=== PATIENT | female | born 2000 | race Caucasian/White ===

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

== ENCOUNTER 2019-03-20 14:21 | Emergency (ER) | payer MEDICAID ==
[~2019-03-20] VITALS: Ht 157.5 cm; Wt 74.8 kg
[2019-03-20 14:31] VITALS: BP_SYST 111
--- NOTE | 2019-03-20 14:35 | NUR ---
Patient triaged and placed in waiting room. VSS and patient appears in no acute distress at this time. Accompanied by mother, awaiting available bed, and MD notified of need for MSE.
--- NOTE | 2019-03-20 14:37 | NUR ---
Patient arrived in the ED accompanied by mom c/o tailbone pain for a week now. Denied any recent trauma or falls. Denied any chest pain, SOB or dizziness. Patient is alert and oriented x4, respirations even and unlabored, speaking in full sentences, and ambulating with a steady gait. VSS, pain level 10/10 - Not taking any pain medications. Mother at bedside. Informed of the wait time. Instructed to notify ED staff for any changes in condition or worsening of symptoms. Patient verbalized understanding.
--- NOTE | 2019-03-20 14:44 | NUR ---
Patient ambulated to the bathroom with a steady gait. Urine specimen collected. Addendum: 03/20/19 at 1454 by [email or web address] Patient ambulated to the bathroom with a steady gait. Unable to collect urine specimen at this time.
--- NOTE | 2019-03-20 15:05 | NUR ---
Urine specimen collected. Urine dip and preg done.
[2019-03-20] MEDS ORDERED: KETOROLAC TROMETHAMINE 60 MG/2 ML VIAL IM ONE (15:15)
--- NOTE | 2019-03-20 15:16 | NUR ---
ER Dr. Michael at bedside examining patient.
--- NOTE | 2019-03-20 15:24 | NUR ---
Administered Toradol 60mg IM as ordered by Dr. Michael. Patient tolerated the medication well.
--- NOTE | 2019-03-20 15:27 | NUR ---
Patient is taken to Radiology in stable condition.
--- NOTE | 2019-03-20 16:08 | NUR ---
Patient given written and verbal discharge instructions and verbalizes understanding. ER MD discussed with patient the results and treatment provided. Patient in stable condition. ID arm band removed. Rx of Naproxen and Tramadol given. Patient educated on pain management and to follow up with PMD. Pain Scale 0/10. Opportunity for questions provided and answered. Medication side effect fact sheet provided.
[2019-03-20 16:14] VITALS: BP_SYST 111
== END 2019-03-20 16:08 | disposition home or self-care (01) ==
LOC: SED 14:21
DX: M53.3 Sacrococcygeal disorders, not elsewhere classified (principal); R42 Dizziness and giddiness
CPT/HCPCS: 72220; 81002; 81025; 96372; 99283; J1885

== ENCOUNTER 2019-03-22 20:12 | Emergency (ER) | payer MEDICAID ==
[~2019-03-22] VITALS: Ht 157.5 cm; Wt 74.8 kg
[2019-03-22 20:20] VITALS: BP_SYST 120
--- NOTE | 2019-03-22 20:20 | NUR ---
Pt to bed 3, side rails up. Report given to Micky PORTILLO.
--- NOTE | 2019-03-22 20:26 | NUR ---
Pt [id number] came in with a complaint of tailbone pain. Pt unable to sit down because of pain. Was in ER last week regarding same complaint. No other complaint noted. Safety precaution observed. Will continue to monitor Pt.
--- NOTE | 2019-03-22 20:29 | NUR ---
ER MD Acuña at bedside for medical evaluation.
[2019-03-22] MEDS ORDERED: LIDOCAINE 1% 10 MG/ML, 20 ML MDV INJ ONE (20:45)
--- NOTE | 2019-03-22 21:00 | NUR ---
to do I and D at bedside.
[2019-03-22 22:05] VITALS: BP_SYST 118
--- NOTE | 2019-03-22 22:05 | NUR ---
Patient given written and verbal discharge instructions and verbalizes understanding. ER MD Dr. Acuña discussed with patient the results and treatment provided. Patient in stable condition. ID arm band removed. bactrim and keflex Patient educated on pain management and to follow up with PMD. Pain Scale 0/10. Opportunity for questions provided and answered. Medication side effect fact sheet provided.
== END 2019-03-22 22:05 | disposition home or self-care (01) ==
LOC: SED 20:12
DX: L02.31 Cutaneous abscess of buttock (principal); R42 Dizziness and giddiness
CPT/HCPCS: 10060; 99283; J2001

== ENCOUNTER 2019-03-26 18:42 | Emergency (ER) | payer MEDICAID ==
[~2019-03-26] VITALS: Ht 157.5 cm; Wt 74.8 kg
[2019-03-26 18:57] VITALS: BP_SYST 113
--- NOTE | 2019-03-26 20:40 | NUR ---
Patient to ER bed 04 to gown for evaluation. Side rails up. Report given to Brigette PORTILLO.
[2019-03-26] MEDS ORDERED: MORPHINE 2 MG/ML INJ. SYRINGE IM ONE (22:30)
[2019-03-26] MEDS ORDERED: cefTRIAXone 1 GM in LIDOCAINE 1%, 20 ML MDV 2.1 ML IM ONE (22:30)
--- NOTE | 2019-03-26 22:30 | NUR ---
ER at bedside examining patient.
--- NOTE | 2019-03-26 22:45 | NUR ---
Pt came to the ED for an abscess to the lower back with intermittent severe pain. Reports she is unable to sit or lie down properly. She was seen in this ED for an I&D for a cyst and packing was replaced 2 days ago at urgent care. Reports she is taking keflex and bactrim. States pt is taking Tramadol with some relief. Denies n/v/d or fever. Denies redness to wound. No other complaints/injuries noted. Will cont. to monitor.
--- NOTE | 2019-03-26 23:00 | NUR ---
Pt went to CT scan. Tolerated well. Will cont. to monitor.
--- NOTE | 2019-03-27 | NUR ---
Pt resting comfortably in bed, no signs of acute distress. Will cont. to monitor.
--- NOTE | 2019-03-27 01:45 | NUR ---
Dr. stanley at bedside examing pt and wound.
[2019-03-27 01:52] VITALS: BP_SYST 113
--- NOTE | 2019-03-27 01:52 | NUR ---
Patient given written and verbal discharge instructions and verbalizes understanding. ER MD Dr. Vasquez discussed with patient the results and treatment provided. Patient in stable condition. ID arm band removed. Rx of bactrim and norco given. Patient educated on pain management and to follow up with PMD. Pain Scale 0/10. Opportunity for questions provided and answered. Medication side effect fact sheet provided.
== END 2019-03-27 01:52 | disposition home or self-care (01) ==
LOC: SED 18:42
DX: L02.31 Cutaneous abscess of buttock (principal)
CPT/HCPCS: 74176; 81025; 96372; 99284; J0696; J2001; J2270